=== PATIENT | female | born 1985 | race Native Hawaiian/Other Pacific Islander ===

== ENCOUNTER 2018-08-01 21:32 | Emergency (ER) | payer OTHER ==
--- NOTE | 2018-08-01 21:48 | Emergency Department Report ---
Blank Doc - Documentation Documentation: This is a 33-year-old female that present n/v/d. Patient also has some abdomi nal discomfort. This initial assessment/diagnostic orders/clinical plan/treatment(s) is/are subject to change based on patient's health status, clinical progression and re- assessment by fellow clinical providers in the ED. Further treatment and workup at subsequent clinical providers discretion. Patient/guardians urged not to elope from the ED as their condition may be serious if not clinically assessed and managed. Initial orders include: 1- Patient sent to [facility] for further evaluation and treatment 2- labs 3- UA 4- XR abd
[2018-08-01 22:27] LABS: Basophils % (Auto) 0.1 % (0.0-1.8); Eosinophils # (Auto) 0.2 K/mm3 (0.0-0.4); Eosinophils % (Auto) 1.4 % (0.0-4.3); Hematocrit 44.9 % (30.3-42.9); Hemoglobin 14.9 gm/dl (10.1-14.3); Lymphocytes # (Auto) 0.7 K/mm3 (1.2-5.4); Mean Corpuscular HGB Conc 33 % (30-34); Mean Corpuscular Volume 90 fl (79-97); Monocytes # (Auto) 0.9 K/mm3 (0.0-0.8); Monocytes % (Auto) 7.2 % (0.0-7.3); Platelet Count 205 K/mm3 (140-440); Red Blood Count 5.01 M/mm3 (3.65-5.03)
[2018-08-01 22:56] LABS: Alanine Aminotransferase 15 units/L (7-56); Albumin 4.3 g/dL (3.9-5); BUN/Creatinine Ratio 21; Bilirubin,Direct < 0.2 mg/dL (0-0.2); Blood Urea Nitrogen 15 mg/dL (7-17); Hemolysis Index 94
[2018-08-01 23:20] VITALS: BP 108/74
[2018-08-01] MEDS ORDERED: ZOFRAN ODT PO ONE (23:23)
[2018-08-01] MEDS ORDERED: TYLENOL PO ONE (23:23)
[2018-08-01] MEDS ORDERED: ZOFRAN ODT ONE (23:27)
[2018-08-01] MEDS ORDERED: TYLENOL ONE (23:27)
--- NOTE | 2018-08-01 23:38 | XRay Report ---
PROCEDURE: XR ABD SERIES W CXR 1V TECHNIQUE: Abdominal series complete, including supine and upright AP views of the abdomen and front al chest. HISTORY: n/v with abdominal pain COMPARISONS: None . FINDINGS: Heart: Normal. Mediastinum/Vessels: Normal. Lungs/Pleural space: Normal. Bowel gas pattern: Nonobstructive . Masses or calcifications: None . Bony structures: No acute osseous abnormality . Other: No free intraperitoneal air . IMPRESSION: Nonspecific intestinal gas pattern No acute pulmonary disease. This document is electronically signed by Cholo Reynolds MD., August 01 2018 11:36:49 PM ET
== END 2018-08-02 02:30 | disposition left against medical advice (07) ==
LOC: ED 21:32
DX: R11.2 Nausea with vomiting, unspecified (principal); Z53.21 Procedure and treatment not carried out due to patient leaving prior to being seen by health care provider
CPT/HCPCS: 36415; 74022; 80048; 80076; 83690; 84703; 85025; Q0162

== ENCOUNTER 2018-10-17 14:37 | Emergency (ER) | payer OTHER ==
--- NOTE | 2018-10-17 15:02 | Emergency Department Report ---
Blank Doc - Documentation Documentation: This is a 33-year-old female that presents with right sided headache and right sided blurry vision. Denies any hx of headache. Denies any one sided weaknes. Exam: neuro exam within normal limits. This initial assessment/diagnostic orders/clinical plan/treatment(s) is/are subject to change based on patient's health status, clinical progression and re- assessment by fellow clinical providers in the ED. Further treatment and workup at subsequent clinical providers discretion. Patient/guardians urged not to elope from the ED as their condition may be serious if not clinically assessed and managed. Initial orders include: 1- Patient sent to [facility] for further evaluation and treatment 2- CT head
[2018-10-17 15:04] VITALS: BP 118/71
--- NOTE | 2018-10-17 16:38 | Cat Scan Report ---
PROCEDURE: CT HEAD/BRAIN WO CON TECHNIQUE: Computerized tomography of the head was performed without contrast material. CT DOSE LENGTH PRODUCT: 920.5 mGycm HISTORY: headache COMPARISONS: Prior CT scan of the brain 03/08/2018 . FINDINGS: Brain: Brain density appears normal. No evidence of intracranial hemorrhage. No parenchymal hemorr russ, mass lesions or mass effect are seen. No abnormal extra-axial fluid collects or masses are see n. Ventricles: Ventricles are normal size and are midline. Bone Windows: No evidence of skull fracture. Paranasal sinuses: Visualized portions are clear.. Mastoid air cells: Clear. IMPRESSION: Negative exam This document is electronically signed by Tono Ingram MD., October 17 2018 04:37:10 PM ET
[2018-10-17] MEDS ORDERED: DECADRON IM ONE (17:09)
[2018-10-17] MEDS ORDERED: REGLAN PO ONE (17:14)
[2018-10-17] MEDS ORDERED: TYLENOL PO ONE (17:14)
[2018-10-17] MEDS ORDERED: BENADRYL PO ONE (17:14)
--- NOTE | 2018-10-17 17:24 | Emergency Department Report ---
ED Headache HPI - General Chief Complaint: Headache Stated Complaint: RT SIDE PAIN/HEADACHE Time Seen by Provider: 10/17/18 15:01 - History of Present Illness Initial Comments: Patient with a 3-year-old female who presents for right-sided migraine 3 days 7/10 sharp radiating to right eye there is no blurred vision no n/v no fever or chills no neck pain , there is mild photophobia Timing/Duration: other (3 days ) Quality: moderate Head Injury Location: frontal Recent Head Trauma: no recent headache/trauma Associated Symptoms: facial pain. denies: confusion, fatigue, fever/chills, flushing, loss of consciousness, nausea/vomiting, nasal congestion, nasal drainage, rash, seizures, sinus infection, stiff neck, vision changes, weakness Allergies/Adverse Reactions: Allergies codeine Adverse Reaction (Verified 03/08/18 10:47) Rash Penicillins Adverse Reaction (Verified 03/08/18 10:47) Rash Home Medications: Ambulatory Orders Butalb/Acetamin/Caff 50-325-40 [Fioricet] 1 tab PO Q6HR PRN #20 tab 03/08/18 Acetaminophen [Acetaminophen TAB] 1,000 mg PO Q6HR PRN #30 tablet 10/17/18 Metoclopramide [Reglan] 10 mg PO Q6H PRN #30 tablet 10/17/18 diphenhydrAMINE [Benadryl CAP] 25 mg PO Q6HR PRN #30 capsule 10/17/18 ED Review of Systems ROS: Stated complaint: RT SIDE PAIN/HEADACHE Other details as noted in HPI Constitutional: denies: chills, fever Eyes: other (mild photophobia ). denies: eye pain, eye discharge, vision change ENT: denies: ear pain, throat pain Respiratory: denies: cough, shortness of breath, wheezing Cardiovascular: denies: chest pain, palpitations Endocrine: no symptoms reported Gastrointestinal: denies: abdominal pain, nausea, diarrhea Genitourinary: denies: urgency, dysuria, discharge Musculoskeletal: denies: back pain, joint swelling, arthralgia Skin: denies: rash, lesions Neurological: headache. denies: weakness, numbness, paresthesias, confusion, abnormal gait, vertigo Psychiatric: denies: anxiety, depression Hematological/Lymphatic: denies: easy bleeding, easy bruising ED Past Medical Hx - Past Medical History Previous Medical History?: No - Surgical History Past Surgical History?: No Additional Surgical History: tube cut - Social History Smoking Status: Never Smoker Substance Use Type: None - Medications Home Medications: Home Medications Medication Instructions Recorded Confirmed Last Taken Type Butalb/Acetamin/Caff 50-325-40 1 tab PO Q6HR PRN #20 tab 03/08/18 Unknown Rx [Fioricet] Acetaminophen [Acetaminophen TAB] 1,000 mg PO Q6HR PRN #30 tablet 10/17/18 Unknown Rx Metoclopramide [Reglan] 10 mg PO Q6H PRN #30 tablet 10/17/18 Unknown Rx diphenhydrAMINE [Benadryl CAP] 25 mg PO Q6HR PRN #30 capsule 10/17/18 Unknown Rx ED Physical Exam - General Limitations: No Limitations General appearance: alert, in no apparent distress - Head Head exam: Present: atraumatic, normocephalic, normal inspection - Eye Eye exam: Present: normal appearance, PERRL, EOMI. Absent: conjunctival injection, nystagmus, periorbital swelling, periorbital tenderness Pupils: Present: normal accommodation - ENT ENT exam: Present: normal orophraynx, mucous membranes moist, TM's normal bilaterally, normal external ear exam - Neck Neck exam: Present: normal inspection, full ROM. Absent: tenderness, meningismus, lymphadenopathy, thyromegaly - Expanded Neck Exam Expanded Neck exam: Absent: tenderness, midline deformity, anterior neck swelling, thyroid mass, carotid bruit, tracheal deviation - Respiratory Respiratory exam: Present: normal lung sounds bilaterally. Absent: respiratory distress, wheezes, stridor, chest wall tenderness - Cardiovascular Cardiovascular Exam: Present: regular rate, normal rhythm, normal heart sounds. Absent: systolic murmur, diastolic murmur, rubs, gallop - GI/Abdominal GI/Abdominal exam: Present: soft, normal bowel sounds. Absent: distended, tenderness, bruit, hernia - Rectal Rectal exam: Present: deferred - Extremities Exam Extremities exam: Present: normal inspection, full ROM, normal capillary refill. Absent: tenderness, pedal edema, joint swelling, calf tenderness - Back Exam Back exam: Present: normal inspection, full ROM. Absent: tenderness, CVA tenderness (R), CVA tenderness (L), muscle spasm, paraspinal tenderness, vertebral tenderness, rash noted - Neurological Exam Neurological exam: Present: alert, oriented X3, CN II-XII intact, normal gait, reflexes normal. Absent: motor sensory deficit - Expanded Neurological Exam Expanded Patient oriented to: Present: person, place, time Speech: Present: fluid speech Cranial nerves: EOM's Intact: Normal, Gag Reflex: Normal, Tongue Deviation: Normal, Nystagmus: Normal, Facial Sensation: Normal Cerebellar function: Finger to Nose: Normal, Heel to Akhtar: Normal, Romberg: Normal Upper motor neuron: Vincent Neglect: Normal, Pronator Drift: Normal, Babinski Sign: Normal, Sensory Extinction: Normal Sensory exam: Upper Extremity Light Touch: Normal, Upper Extremity Pin Prick: Normal, Upper Extremity Temperature: Normal, UE 2 Point Discrimination: Normal, Lower Extremity Light Touch: Normal, Lower Extremity Pin Prick: Normal, Lower Extremity Temperature: Normal, LE 2 Point Discrimination: Normal Motor strength exam: RUE: 5, LUE: 5, RLE: 5, LLE: 5 DTR: bicep (R): 2+, bicep (L): 2+, ankle (R): 2+, ankle (L): 2+ Best Eye Response (Aston): (4) open spontaneously Best Motor Response (Aston): (6) obeys commands Best Verbal Response (Aston): (5) oriented Aston Total: 15 - Psychiatric Psychiatric exam: Present: normal affect, normal mood - Skin Skin exam: Present: warm, dry, intact, normal color. Absent: rash ED Course Vital Signs 10/17/18 15:01 Temperature 98.5 F Pulse Rate 68 Respiratory 18 Rate Blood Pressure 118/71 O2 Sat by Pulse 100 Oximetry ED Medical Decision Making - Radiology Data Radiology results: report reviewed, image reviewed Ordering Physician: ARYA GIFFORD NP Date of Service: 10/17/18 Procedure(s): CT head/brain wo con Accession Number(s): [id number] cc: ARYA GIFFORD NP PROCEDURE: CT HEAD/BRAIN WO CON TECHNIQUE: Computerized tomography of the head was performed without contrast material. CT DOSE LENGTH PRODUCT: 920.5 mGycm HISTORY: headache COMPARISONS: Prior CT scan of the brain 03/08/2018 . FINDINGS: Brain: Brain density appears normal. No evidence of intracranial hemorrhage. No parenchymal hemorrhage, mass lesions or mass effect are seen. No abnormal extra-axial fluid collects or masses are seen. Ventricles: Ventricles are normal size and are midline. Bone Windows: No evidence of skull fracture. Paranasal sinuses: Visualized portions are clear.. Mastoid air cells: Clear. IMPRESSION: Negative exam This document is electronically signed by Tono Gaitan MD., October 17 2018 04:37:10 PM ET Transcribed By: DFN Dictated By: TONO GAITAN MD Electronically Authenticated By: TONO GAITAN MD Signed Date/Time: 10/17/18 1638 DD/ 1625 TD/TT: 10/17/18 1629 - Medical Decision Making pain is improve CT head normal no mass no bleed no abnormality, plan dc to home with rx tylenol , reglan, benadryl follow up pcp in 2-3 days follow up with neurology in 2-3 days referral as requested pt will be dc'd to home in stable condition at this time. pt is currently a/o x 3 ambulatory with steady gait nad Critical care attestation.: If time is entered above; I have spent that time in minutes in the direct care of this critically ill patient, excluding procedure time. ED Disposition Clinical Impression: Headache Qualifiers: Headache type: unspecified Headache chronicity pattern: acute headache Intractability: not intractable Qualified Code(s): R51 - Headache Disposition: DC-01 TO HOME OR SELFCARE Is pt being admited?: No Does the pt Need Aspirin: No Condition: Stable Instructions: Acute Headache (ED) Prescriptions: Acetaminophen [Acetaminophen TAB] 1,000 mg PO Q6HR PRN #30 tablet PRN Reason: Headache diphenhydrAMINE [Benadryl CAP] 25 mg PO Q6HR PRN #30 capsule PRN Reason: Headache Metoclopramide [Reglan] 10 mg PO Q6H PRN #30 tablet PRN Reason: headache Referrals: DARIN BAI MD [Emergency Provider] - 3-5 Days Forms: Work/School Release Form(ED) Time of Disposition: 17:39
== END 2018-10-17 17:47 | disposition home or self-care (01) ==
LOC: ED 14:37
DX: R51 Headache (principal); Z88.5 Allergy status to narcotic agent; Z88.0 Allergy status to penicillin
CPT/HCPCS: 70450; J1100; 96372